=== PATIENT | male | born 1930 | race Caucasian/White ===

== ENCOUNTER 2017-06-22 19:39 | Inpatient (IN) | payer OTHER, MEDICAID ==
[~2017-06-22] VITALS: Ht 180.3 cm; Wt 98.0 kg
[2017-06-22 19:41] VITALS: BP 111/39
[2017-06-22] MEDS ORDERED: LISINOPRIL2.5 MG PO (19:51)
[2017-06-22] MEDS ORDERED: PRAVACHOL40 MG PO (19:52)
[2017-06-22] MEDS ORDERED: SORINE 80 MG TA80 M1 PO (19:52)
[2017-06-22] MEDS ORDERED: ELIQUIS5 MG PO (19:52)
[2017-06-22 20:21] LABS: HEMATOCRIT 37.7 % (42.0-52.0); HEMOGLOBIN 11.5 gm/dL (14.0-18.0); MCH 24.1 pg (26.0-34.0); MCHC 30.5 g/dL (28.0-37.0); MPV 9.2 fl. (7.2-11.1); NUCLEATED RBCS 0 /100WBC; PLATELET COUNT* 356 thou/uL (150-400); RBC 4.77 mil/uL (4.50-6.00); RDW-CV 17.8 % (10.5-14.5); WBC 13.4 thou/uL (4.0-11.0)
[2017-06-22 20:27] LABS: ANION GAP 7 mmol/L (7-16); BUN 14 mg/dL (7-18); CALCIUM 8.7 mg/dL (8.5-10.1); CHLORIDE 104 mmol/L (98-107); CO2 31 mmol/L (21-32); CREATININE 0.9 mg/dL (0.6-1.3); GLUCOSE 139 mg/dL (70-99); POTASSIUM 4.2 mmol/L (3.5-5.1); SODIUM 142 mmol/L (136-145)
[2017-06-22 20:29] LABS: INR 1.3; PROTIME 12.7 Seconds (9.20-11.50)
[2017-06-22 20:38] LABS: ALBUMIN 2.7 g/dL (3.4-5.0); ALKALINE PHOSPHATASE 65 U/L (46-116); NT-PRO BRAIN NAT PEPTIDE 1616 pg/mL (<300); SGOT 18 U/L (15-37); SGPT 10 U/L (30-65); TOTAL BILIRUBIN 0.6 mg/dL (<0.1-1.0); TOTAL PROTEIN 7.2 g/dL (6.4-8.2); TROPONIN-I LEVEL <0.06 ng/mL (<0.06)
[2017-06-22 21:19] LABS: ABSOLUTE EOSINOPHILS 0.3 thou/uL (0.0-0.7); ABSOLUTE LYMPHOCYTES 2.1 thou/uL (0.8-5.3); ABSOLUTE MONOCYTES 1.1 thou/uL (0.0-1.2); ABSOLUTE NEUTROPHILS 9.9 thou/uL (1.6-8.1)
[2017-06-22 21:20] LABS: ANISOCYTOSIS 1+; HYPOCHROMASIA 1+; PLATELET ESTIMATE ADEQUATE
[2017-06-22 21:23] LABS: CLUMPED PLTS OCCASIONAL; POIKILOCYTOSIS Occasional; TOXIC GRANULATION 1+
[2017-06-22 22:15] VITALS: BP 123/60
[2017-06-22 23:08] LABS: INFLUENZA A ANTIGEN None Detected (None Detect); INFLUENZA B ANTIGEN None Detected (None Detect)
[2017-06-22 23:21] VITALS: BP 111/58
[2017-06-23] MEDS ORDERED: SYMBICORT160 MCG/4. INH (00:26)
[2017-06-23 04:00] VITALS: BP 102/41
[2017-06-23 05:09] LABS: HEMATOCRIT 34.5 % (42.0-52.0); HEMOGLOBIN 10.6 gm/dL (14.0-18.0); MCH 24.3 pg (26.0-34.0); MCHC 30.8 g/dL (28.0-37.0); MCV 78.8 fL (80.0-100.0); MPV 9.1 fl. (7.2-11.1); RBC 4.38 mil/uL (4.50-6.00); RDW-CV 17.4 % (10.5-14.5); WBC 10.9 thou/uL (4.0-11.0)
[2017-06-23 05:40] LABS: ALBUMIN 2.3 g/dL (3.4-5.0); CALCIUM 8.5 mg/dL (8.5-10.1); CREATININE 0.9 mg/dL (0.6-1.3); POTASSIUM 3.7 mmol/L (3.5-5.1); TOTAL BILIRUBIN 0.5 mg/dL (<0.1-1.0); TOTAL PROTEIN 6.3 g/dL (6.4-8.2)
[2017-06-23 07:30] VITALS: BP 111/54
[2017-06-23 11:51] VITALS: BP 109/48
[2017-06-23 11:58] LABS: URINE BILIRUBIN NEGATIVE (Negative); URINE BLOOD NEGATIVE (Negative); URINE CLARITY CLEAR; URINE COLOR YELLOW; URINE GLUCOSE-RANDOM NEGATIVE (Negative); URINE KETONES NEGATIVE (Negative); URINE LEUKOCYTES-REFLEX NEGATIVE (Negative); URINE NITRITE-REFLEX NEGATIVE (Negative); URINE PROTEIN NEGATIVE (Negative); URINE UROBILINOGEN 0.2 E.U./dl (0.2-1.0)
--- NOTE | 2017-06-23 12:06 | EKG ---
[place] [address] ELECTROCARDIOGRAM REPORT Name: DMITRY SAHA Room: [address] ADM IN M.R.#: [id number] Admission: 06/22/17 Attend Phys: Shantel Navas MD Discharge: Date of : 32 Report #: [id number] THIS REPORT FOR: //name// [facility] ED Test Date: 2017-06-22 Test Time: 19:45:48 Pat Name: DMITRY SAHA Department: Room: [facility] Gender: M Photography Assistant: EVETTE FERMINB: 1930 Requested By: Darlyn Dahl Order Number: [id number] MD: Marvin Hopkins Measurements Intervals [place] Rate: 74 P: [place]: 187 QRS: -46 QRSD: 102 T: 181 QT: 464 QTc: 515 Interpretive Statements sinus rhythm with first degree av block LAD, consider left anterior fascicular block Abnormal R-wave progression, late transition Abnormal T, consider ischemia, diffuse leads Prolonged QT interval No previous ECG available for comparison Electronically Signed On 06-23-2017 12:05:56 GENERAL STUDIES PROGRAM CHAIR by Marvin Hopkins [email or web address] <ELECTRONICALLY SIGNED> By: Marvin Hopkins MD, FAC 06/23/17 1205 44 44 Marvin Hopkins MD, [facility] /EPI
--- NOTE | 2017-06-23 14:19 | 2DMMODE ---
[place] [address] 2 D/M-MODE ECHOCARDIOGRAM Name: DMITRY SAHA Room: [address] IN [facility]#: [id number] Admission: 06/22/17 Attend Phys: Shantel Navas, Discharge: Date of : 32 Date of Service: 06/23/17 1418 Report #: [id number] THIS REPORT FOR: //name// APPROVED REPORT Study performed: 06/23/2017 10:42:23 EXAM: Comprehensive 2D, Doppler, and color-flow Echocardiogram Patient Location: In-Patient Room #: 222 Status: routine BSA: 2.18 HR: 79 bpm BP: 111/54 mmHg Rhythm: NSR Other Information Study Quality: Fair Indications Arrhythmia Dyspnea 2D Dimensions LVEF(%): 74.57 (>50%) IVSd: 13.76 (7-11mm) LVOT Diam: 24.44 (18-24mm) LVDd: 46.97 mm PWd: 9.23 (7-11mm) Ascending Ao: 41.22 (22-36mm) LVDs: 26.58 (25-40mm) Aortic Root: 43.40 mm Walker's LVEF: 74.57 % Volumes Left Atrial Volume (Systole) LA ESV Index: 23.30 mL/m2 Aortic Valve AoV Peak Steven.: 1.27 m/s AO Peak Gr.: 6.46 mmHg LVOT Max P.78 mmHg AO Mean Gr.: 3.47 mmHg LVOT Mean P.31 mmHg LVOT Max V: 0.83 m/s AO V2 VTI: 24.50 cm LVOT Mean V: 0.52 m/s MARIMAR (VTI): 3.14 cm2 LVOT V1 VTI: 16.39 [place] [address] 2 D/M-MODE ECHOCARDIOGRAM Name: DMITRY SAHA Room: [address] IN .R.#: [id number] Admission: 06/22/17 Attend Phys: Shantel Navas, Discharge: Date of : 32 Date of Service: 06/23/17 1418 Report #: [id number] E/A Ratio: 1.13 MV Decel. Time: 190.62 ms MV E Max Steven.: 0.95 m/s MV PHT: 55.28 ms MVA (PHT): 3.98 cm2 TDI E/Lateral E': 10.56 E/Medial E': 10.56 Medial E' Steven.: 0.09 m/s Lateral E' Steven.: 0.09 m/s Pulmonary Valve PV Peak Steven.: 0.95 m/s PV Peak Gr.: 3.59 mmHg Left Ventricle The left ventricle is normal size. There is normal LV segmental wall motion. Mild septal hypertrophy is present. Left ventricular systolic function is normal. The left ventricular ejection fraction is within the normal range. LVEF is 55-60%. The left ventricular diastolic function is normal. Right Ventricle The right ventricle is normal size. The right ventricular systolic function is normal. Atria The left atrium size is normal. The right atrium size is normal. Aortic Valve The aortic valve is normal in structure. No aortic regurgitation is present. There is no aortic valvular stenosis. Mitral Valve The mitral valve is normal in structure. Mild mitral regurgitation. No evidence of mitral valve stenosis. Tricuspid Valve The tricuspid valve is normal in structure. Unable to assess PA pressure. Pulmonic Valve Pulmonic valve is not well visualized. Mild pulmonic regurgitation[place] [address] 2 D/M-MODE ECHOCARDIOGRAM Name: DMITRY SAHA Room: [address] IN [facility]#: [id number] Admission: 06/22/17 Attend Phys: Shantel Navas, Discharge: Date of : 32 Date of Service: 06/23/17 1418 Report #: [id number] Aortic root is mildly dilated. IVC is not well visualized. Pericardium There is no pericardial effusion. <Conclusion> LVEF is 55-60%. Mild mitral regurgitation. <ELECTRONICALLY SIGNED> By: Marvin Hopkins MD, [facility] 06/23/17 1418 141 1418 Marvin Hopkins MD, [facility] /INF
[2017-06-23 16:00] VITALS: BP 96/47
[2017-06-23 20:08] VITALS: BP 93/52
[2017-06-24] VITALS (7 sets, daily range): BP systolic 86–111; BP diastolic 41–64
[2017-06-24 05:25] LABS: HEMATOCRIT 34.6 % (42.0-52.0); HEMOGLOBIN 10.7 gm/dL (14.0-18.0); MCH 24.2 pg (26.0-34.0); MCHC 30.8 g/dL (28.0-37.0); MCV 78.5 fL (80.0-100.0); MPV 9.2 fl. (7.2-11.1); RBC 4.41 mil/uL (4.50-6.00); RDW-CV 17.7 % (10.5-14.5)
[2017-06-24 05:40] LABS: CALCIUM 8.6 mg/dL (8.5-10.1); MAGNESIUM 1.8 mg/dL (1.8-2.4); POTASSIUM 3.5 mmol/L (3.5-5.1)
--- NOTE | 2017-06-24 10:51 | CON ---
[address] [address] CONSULTATION Name: DMITRY SAHA Room: [address] IN M.R.#: [id number] Admission: 06/22/17 Attend Phys: Shantel Navas MD Discharge: Date of : 31 Report #: [id number] THIS REPORT FOR: //name// CC: Damion Navas DATE OF SERVICE: 06/23/2017 REFERRING PHYSICIAN: Manjinder Solis MD. CHIEF COMPLAINT: Dyspnea. HISTORY OF PRESENT ILLNESS: The patient is an 86-year-old male who is a DNR/DNI. He has chronic pleural effusion on the right. He has had a PleurX catheter placed about 3 weeks or so ago. He has been having drainage 2-3 times a week. Yesterday, he fell at home and paramedics were summoned. The patient was brought to the Emergency Room because of an abnormal rhythm strip. The patient gives a history stating that about 7 years ago, he started having problems with pleural effusion that was chronic in nature. Fluid was considered related to his heart failure. He does have coronary artery disease and has had bypass surgery in the past. Because of frequent thoracentesis, he landed up having a PleurX catheter placed and had been undergoing drainage by home health on about every other day or so basis. Because of his problem as outlined above last night, he was brought to this hospital. He is short of breath that is not unusual for him at this point. He is due to have his fluid drained. He is not experiencing any cough, phlegm production, fever, chills, nausea or vomiting. PAST MEDICAL HISTORY: Significant for prostate CA, pacemaker insertion, myocardial infarction, COPD, reflux disorder, hearing loss, chronic right pleural effusion. ALLERGIES: SULFA DRUGS. FAMILY HISTORY: Not pertinent to his advanced age. SOCIAL HISTORY: He is , lives with his . He is a prior smoker, [place] [address] CONSULTATION Name: DMITRY SAHA Room: [address] IN ..#: [id number] Admission: 06/22/17 Attend Phys: Shantel Navas MD Discharge: Date of : 31 Report #: [id number] REVIEW OF SYSTEMS: System review negative other than what is outlined above. CURRENT MEDICATIONS: Consist of Zosyn, vancomycin, Apixaban, Pulmicort Respules, Dulcolax, Lasix therapy, lisinopril, melatonin, laxatives, Zofran as needed, phosphorus and potassium placement as needed. PHYSICAL EXAMINATION: VITAL SIGNS: Blood pressure 109/48, respiratory rate 18 and nonlabored, pulse rate 62 and irregular, temperature 98 degrees. His weight is 216 pounds. GENERAL APPEARANCE: He is awake and alert. He is not in any respiratory distress, not using accessory muscles. HEAD: Atraumatic. EYES: Pupils round, equal, reactive. ORAL CAVITY: Moist. No lesions. NECK: No adenopathy. CHEST: Markedly diminished breath sounds throughout. He has dullness in the right base as would be expected. The pleural catheter was looked at. There is no evidence of drainage or soilage on the dressing. ABDOMEN: Soft. No organomegaly. EXTREMITIES: With 4+ edema. He has Dvaid wraps for compression purposes. The patient states that there are no open wounds or leakage. NEUROLOGIC: He is able to move all 4 extremities. He is weak throughout. LABORATORY DATA: Sodium 144, potassium 3.7, chloride 108, CO2 of 30, BUN of 13, creatinine 0.9. EGFR is 80. ProBNP 1616. Troponin less than 0.06 on admission. Hemoglobin and hematocrit of 11 and 35, white count 10,900, platelet count 265,000. Influenza A/B screen negative. Chest x-ray, moderate to large pleural effusion on the right. ASSESSMENT: 1. Chronic congestive failure. 2. Chronic pleural effusion, probably transudative based on the patient's historical input. 3. Chronic obstructive airways disease. 4. Chronic peripheral edema. RECOMMENDATION: The patient will undergo drainage of the pleural fluid. Pulmonary posadas, this should help alleviate some of his distress. He is a DNR/DNI and as far as Pulmonary is concerned, once the fluid is drained and he is not in any distress, I see no reason why he could not be discharged. We will go ahead and sign off his case at this time and will be [place] [address] CONSULTATION Name: DMITRY SAHA Room: [address] IN [facility]#: [id number] Admission: 06/22/17 Attend Phys: Shantel Navas MD Discharge: Date of : 31 Report #: [id number] have no other further recommendations other than aspiration precautions. Continue with aerosol treatments. <ELECTRONICALLY SIGNED> By: Josr Atkinson MD 06/24/17 1051 1318 [id number] Atkinson MD /
[2017-06-25 04:00] VITALS: BP 110/54
[2017-06-25 06:17] LABS: CALCIUM 8.7 mg/dL (8.5-10.1); CREATININE 1.1 mg/dL (0.6-1.3); MAGNESIUM 1.8 mg/dL (1.8-2.4)
[2017-06-25 08:02] VITALS: BP 102/53
--- NOTE | 2017-06-25 18:15 | CON ---
[address] [address] CONSULTATION Name: YIFANDMITRY SANDY Room: [address] IN M.R.#: [id number] Admission: 06/22/17 Attend Phys: Shantel Navas MD Discharge: Date of : 31 Report #: [id number] THIS REPORT FOR: //name// CC: Damion Navas DATE OF SERVICE: 06/23/2017 HISTORY OF PRESENT ILLNESS: The patient is an 86-year-old white male who I was asked to see in the hospital today after he fell. The history is obtained from the patient. There are no old records available. He has never been here at [place]. The patient is initially from [place], but retired and moved to [place], [place]. While in [place], he underwent coronary artery stenting and eventually underwent multivessel bypass surgery in 2008 in [place], [place]. He has not required stents since that time. He then moved to [place]. He does have a history of atrial fibrillation. Five years ago, he had a pacemaker inserted at [facility] in [place], [place]. He apparently has never been cardioverted. He has been followed by Dr. Beach at [facility] in [facility]. The patient has chronic edema and has to have his legs wrapped. He is very sedentary. He does have a history of falls. Yesterday, the patient got up to go to the bathroom. On his way back, he sat on the side of the chair and fell to the ground. He could not get up. Paramedics were called. He was brought here to [place]. He denied chest pain or palpitations. He does get short of breath with exertion. He has had no recent fever. He does have chronic cough. He has had no bleeding problems. PAST MEDICAL HISTORY: Otherwise significant for prostate surgery for cancer, appendectomy, multiple procedures for urinary incontinence including urinary sphincter implantation. He has had hernia repair, both knees replaced. He has a history of hypertension, hyperlipidemia. MEDICATIONS: Consist of lisinopril, sotalol, Eliquis, pravastatin. ALLERGIES: He has an allergy to SULFA DRUGS. FAMILY HISTORY: Negative for heart disease. SOCIAL HISTORY: He is . He and his now live in [place]. He is retired house contractor. Quit smoking years ago, rarely drinks alcohol. REVIEW OF SYSTEMS: He has had no history of stroke, asthma, peptic ulcer disease, liver disease, kidney disease, psychiatric illness or chronic skin condition. PHYSICAL EXAMINATION: [place] [address] CONSULTATION Name: DMITRY SAHA Room: [address] IN M.R.#: [id number] Admission: 06/22/17 Attend Phys: Shantel Navas MD Discharge: Date of : 31 Report #: [id number] GENERAL: Revealed an elderly male, lying in bed, appeared in no distress. VITAL SIGNS: He had a blood pressure of 110/60, pulse is 70, he is afebrile. HEENT: He is anicteric. Conjunctivae pink. Mucous membranes appear dry. NECK: Veins do not appear distended. CHEST: Clear to auscultation. CARDIOVASCULAR: Regular rate and rhythm. No significant murmur. ABDOMEN: Obese, soft, nontender. EXTREMITIES: Could not be examined since both legs are wrapped up to the mid thigh. SKIN: Cool and dry. NEUROLOGIC: He is very slow moving. The patient had an echocardiogram today that showed normal left ventricular function with mild mitral regurgitation. His workup in the Emergency Room yesterday, he had a portable chest x-ray that showed small effusions, cardiomegaly, atelectasis. CT scan of the chest without contrast revealed the following findings: A pleural effusion, calcified lung nodules. There is cardiomegaly, cyst in left kidney. He had venous duplex scan of his legs today, which showed no DVT. LABORATORY DATA: Sodium 144, creatinine 0.9, glucose 104. Liver function studies were normal. White blood cell count 10.9, hemoglobin 10.6. His ECG on admission showed what appeared to represent an atrial paced rhythm at 70 beats per minute, nonspecific T-wave changes. IMPRESSION AND RECOMMENDATIONS: 1. Sick sinus syndrome. The patient atrial paced. 2. History of atrial fibrillation. The patient is on sotalol and anticoagulated. 3. Coronary artery disease. No recent angina. 4. Hypertension. The patient is on an ELIF inhibitor and beta lisa. 5. Hyperlipidemia. The patient is on a statin drug. 6. History of prostate cancer. 7. Chronic edema. Suspect venous stasis. <ELECTRONICALLY SIGNED> By: Marvin Hopkins MD, FACC 06/25/17 1815 1510 [id number] Hopkins MD, FAC /nt
[2017-06-25 18:45] VITALS: BP 118/49
[2017-06-25 19:40] VITALS: BP 116/53
[2017-06-26 00:16] VITALS: BP 96/53
[2017-06-26 08:00] VITALS: BP 103/52; BP 178/71
[2017-06-26 15:25] VITALS: BP 111/71
[2017-06-27 16:00] VITALS: BP 136/52
[2017-06-27 19:45] VITALS: BP 98/57
[2017-06-27 23:49] VITALS: BP 105/60
[2017-06-28 09:30] VITALS: BP 119/65
[2017-06-28 10:01] VITALS: BP 119/65
[2017-06-28] MEDS ORDERED: FUROSEMIDE 40 M40 M1 PO (15:48)
[2017-06-28] MEDS ORDERED: ACCUNEB SO1.25 MG/1 INH (16:02)
== END 2017-06-28 16:44 | DRG 291 ==
LOC: M.ERS 19:39 → M.TBA-ER 21:34 → M.2W 21:34 → M.ORTHSURG 06-26 10:20
PROVIDERS: Emergency Medicine; Internal Medicine; ADMIT Internal Medicine
PROC: 0WP8X0Z Removal of Drainage Device from Chest Wall, External Approach (ICD-10-PCS; principal; 2017-06-28)
DX: I13.0 Hypertensive heart and chronic kidney disease with heart failure and stage 1 through stage 4 chronic kidney disease, or unspecified chronic kidney disease (principal); I50.43 Acute on chronic combined systolic (congestive) and diastolic (congestive) heart failure; E44.0 Moderate protein-calorie malnutrition; J44.9 Chronic obstructive pulmonary disease, unspecified; Z66 Do not resuscitate; K21.9 Gastro-esophageal reflux disease without esophagitis; Z96.653 Presence of artificial knee joint, bilateral; E78.5 Hyperlipidemia, unspecified; I49.5 Sick sinus syndrome; I25.10 Atherosclerotic heart disease of native coronary artery without angina pectoris; H91.90 Unspecified hearing loss, unspecified ear; N18.2 Chronic kidney disease, stage 2 (mild); I48.91 Unspecified atrial fibrillation; I87.2 Venous insufficiency (chronic) (peripheral); I34.0 Nonrheumatic mitral (valve) insufficiency; Z95.0 Presence of cardiac pacemaker; Z85.46 Personal history of malignant neoplasm of prostate; Z88.2 Allergy status to sulfonamides; I25.2 Old myocardial infarction; Z95.1 Presence of aortocoronary bypass graft; Z91.041 Radiographic dye allergy status; Z87.891 Personal history of nicotine dependence